=== PATIENT | male | born 1975 | race Hispanic/Latino ===

== ENCOUNTER 2021-02-03 12:08 | Emergency (ER) | payer OTHER ==
[~2021-02-03 12:08] MED LIST: ULTRAM50 M1 PO
[2021-02-03 13:37] LABS: HEMATOCRIT 44.6 % (39.0-50.0); HEMOGLOBIN 14.7 g/dl (14.0-18.0); IMMATURE GRANULOCYTES 0.4 % (0.0-5.0); MEAN CELL VOLUME 89.9 fL CALC (80.0-100.0); MEAN CORPUSCULAR HGB 29.6 pG CALC (26.0-32.0); NEUT# 11.67 thou/uL (1.82-7.42); RED BLOOD COUNT 4.96 mill/uL (4.70-6.10); RED CELL DISTRI WIDTH 12.5 % (11.5-15.5)
[2021-02-03 13:54] LABS: ALBUMIN 3.8 g/dL (3.2-5.0); ALKALINE PHOSPHATASE 72 u/l (38-126); AMYLASE 62 u/l (30-110); ANION GAP 13 (6-22 (CALC)); BILIRUBIN, TOTAL 0.2 mg/dL (0.0-1.4); BUN 11 mg/dL (9-20); BUN/CREATININE RATIO 15 (12-20 (CALC)); CARBON DIOXIDE 29 mmol/l (22-30); CHLORIDE 95 mmol/l (95-108); CREATININE 0.7 mg/dL (0.7-1.3); GFR > 60 ML/MIN (>=60 (CALC)); GFR FOR AFR.AMER. > 60 ML/MIN (>=60 (CALC)); LIPASE 50 u/l (23-300); POTASSIUM 4.3 mmol/l (3.5-5.1); SGOT/AST 44 u/l (17-59); TOTAL PROTEIN 7.4 g/dL (6.3-8.2)
[2021-02-03 14:00] LABS: SODIUM 133 mmol/l (137-146)
[2021-02-03 14:38] LABS: D-DIMER 0.41 mg/L (0.19-0.60)
[2021-02-03 14:41] LABS: ACT PARTIAL THROMBO TIME 25.5 SECONDS (20.0-32.5); INTERNATIONAL NORMALIZED RATIO 0.9 RATIO (0.7-1.3); PROTHROMBIN TIME 9.9 SECONDS (9.0-12.5)
[2021-02-03 15:02] LABS: URINE BILIRUBIN - DIPSTICK NEGATIVE (NEGATIVE); URINE BLOOD DIPSTICK NEGATIVE (NEGATIVE); URINE COLOR YELLOW; URINE GLUCOSE - DIPSTICK NEGATIVE (NEGATIVE); URINE KETONE NEGATIVE (NEGATIVE); URINE LEUK ESTERASE NEGATIVE (NEGATIVE); URINE PH 7.5 (4.5-8.0); URINE PROTEIN - DIPSTICK NEGATIVE (NEG-TRACE); URINE UROBILINOGEN - DIPSTICK 0.2 E.U./dL (0.2)
[2021-02-03 15:10] LABS: URINE NITRITE - DIPSTICK NEGATIVE (Negative)
[2021-02-03] MEDS ORDERED: DECADRON2 MG PO (16:29)
[2021-02-03] MEDS ORDERED: VENTOLIN HFA IN (16:29)
[2021-02-03] MEDS ORDERED: ZPAK PO (16:29)
[2021-02-03 17:51] VITALS: BP 147/87
== END 2021-02-03 18:02 | disposition home or self-care (01) | DRG 177 ==
LOC: ED 12:08
DX: U07.1 COVID-19 (principal); J12.82 Pneumonia due to coronavirus disease 2019
CPT/HCPCS: Q9967

== ENCOUNTER 2021-02-04 19:28 | Inpatient (IN) | payer OTHER ==
[~2021-02-04] VITALS: Ht 160 cm; Wt 92.0 kg
[~2021-02-04 19:28] MED LIST changes: +DECADRON2 MG PO; +VENTOLIN HFA IN; +ZPAK PO
[2021-02-04 21:00] LABS: HEMATOCRIT 44.3 % (39.0-50.0); HEMOGLOBIN 14.5 g/dl (14.0-18.0); IMMATURE GRANULOCYTES 1.1 % (0.0-5.0); MEAN CELL VOLUME 90.2 fL CALC (80.0-100.0); MEAN CORPUSCULAR HGB 29.5 pG CALC (26.0-32.0); MEAN CORPUSCULAR HGB CONC 32.7 g/dL CAL (32.0-36.0); NEUT# 21.1 thou/uL (1.82-7.42); RED BLOOD COUNT 4.91 mill/uL (4.70-6.10); RED CELL DISTRI WIDTH 12.6 % (11.5-15.5)
[2021-02-04 21:21] LABS: ALBUMIN 3.9 g/dL (3.2-5.0); ALKALINE PHOSPHATASE 83 u/l (38-126); ANION GAP 13 (6-22 (CALC)); BUN 15 mg/dL (9-20); BUN/CREATININE RATIO 21 (12-20 (CALC)); CARBON DIOXIDE 29 mmol/l (22-30); CHLORIDE 97 mmol/l (95-108); CREATININE 0.7 mg/dL (0.7-1.3); GFR > 60 ML/MIN (>=60 (CALC)); GFR FOR AFR.AMER. > 60 ML/MIN (>=60 (CALC)); POTASSIUM 4.4 mmol/l (3.5-5.1); SGOT/AST 32 u/l (17-59); SODIUM 134 mmol/l (137-146); TOTAL PROTEIN 7.8 g/dL (6.3-8.2)
[2021-02-04 21:28] LABS: BILIRUBIN, TOTAL 0.4 mg/dL (0.0-1.4)
--- NOTE | 2021-02-04 22:15 | NUR ---
PT RESTING. VSS. AWAITING ADMISSION.
--- NOTE | 2021-02-04 23:55 | NUR ---
PT TO FLOOR VIA STRETCHER. REPORT CALLED TO FLOOR BY LUCILLE PHILLIP. TAKE TO FLOOR VIA STRETCHER WITH O2 @ 2 LPM. VSS
--- NOTE | 2021-02-04 23:56 | NUR ---
PT ADMITED TO ROOM:283 FROM ER ROOM: 14. REPORT GIVE TO MR. FANNY ADKINS FROM MED SURG. CHECK LIST COMPLETED. LAC #20 IV SALINE LOCK ARE PATENT, CLEAN AND INTACT. FAMILY MEMBER NOTIFIED ABOUT ADMISSION AND RULES FROM MED SURG DEPARTMENT. PT TRANSFER BY STRETCHER WITH NASAL CANULA AT 2 LITERS. PT ORIENTED TO PERSON, TIME AND PLACE, ONLY SPEAK POLISH
[2021-02-05 00:09] VITALS: BP 137/75
--- NOTE | 2021-02-05 00:09 | NUR ---
PT RECEIVED FROM ED TO ROOM 283. ARRIVES VIA STRETCHER ACCOMPANIED BY KENJI ADKINS. PT AMBULATORY TO BED. GAIT STEADY. PT C/O OF CHEST PAIN FROM COUGHING AT THIS TIME. ORIENTED TO UNIT, ROOM, CALL PAL, LIGHTS, TV. ICE WATER PROVIDED. CALL PAL WITHIN REACH. AGREES TO CALL PRN.
--- NOTE | 2021-02-05 00:30 | NUR ---
PHYSICAL ASSESMENT COMPLETE. PT GIVEN TYLENOL FOR PAIN AND DISCOMFORT FROM HIS PERSISTENT COUGH. SCHEDULED MEDICATIONS AND PRN MEDICATION ADMINISTERED, SEE E-MAR. PTS RESPIATIONS ARE MILDLY LABORED. pT IS 0N 3 LITERS OF OXYGEN IN WHICH HIS STURATION IS 92%. PT HAS GOOD PULSES. HEART SOUNDS HEARD NORMAL SINUS RHYTHM. PT IS AMHARIC SPEAKING ONLY. KENJI ADKINS FROM ER INTERPRETED. PT DENIES ANY NEEDS AT THIS TIME. PLAN OF CARE REVIEWED, PT DENIES QUESTIONS, VERBALIZES UNDERSTANDING. ITEMS WITHIN REACH, BED LOCKED IN LOW POSITION W/ BEDRAILS UP X2. CALL PAL WITHIN REACH, AGREES TO CALL PRN.
[2021-02-05 03:33] VITALS: BP 131/74
--- NOTE | 2021-02-05 04:21 | NUR ---
PT RESTING IN BED, NO SIGNS OF DISTRESS NOTED, RESP EVEN AND UNLABORED. PT VOICES NO NEEDS OR COMPLAINTS AT THIS TIME. CALL LIGHT IN REACH, CONTINUE TO MONITOR.
[2021-02-05 05:08] LABS: HEMATOCRIT 42.3 % (39.0-50.0); IMMATURE GRANULOCYTES 1.1 % (0.0-5.0); MEAN CELL VOLUME 90.8 fL CALC (80.0-100.0); MEAN CORPUSCULAR HGB CONC 33.1 g/dL CAL (32.0-36.0); NEUT# 22.13 thou/uL (1.82-7.42); RED BLOOD COUNT 4.66 mill/uL (4.70-6.10); RED CELL DISTRI WIDTH 12.8 % (11.5-15.5)
[2021-02-05 05:37] LABS: ALKALINE PHOSPHATASE 71 u/l (38-126); ANION GAP 14 (6-22 (CALC)); BILIRUBIN, TOTAL 0.4 mg/dL (0.0-1.4); BUN 16 mg/dL (9-20); BUN/CREATININE RATIO 27 (12-20 (CALC)); CARBON DIOXIDE 25 mmol/l (22-30); CHLORIDE 101 mmol/l (95-108); CREATININE 0.6 mg/dL (0.7-1.3); GFR > 60 ML/MIN (>=60 (CALC)); GFR FOR AFR.AMER. > 60 ML/MIN (>=60 (CALC)); POTASSIUM 4.6 mmol/l (3.5-5.1); SGOT/AST 26 u/l (17-59); SODIUM 135 mmol/l (137-146)
[2021-02-05 05:42] LABS: TOTAL PROTEIN 6.1 g/dL (6.3-8.2)
[2021-02-05 06:22] LABS: URINE BILIRUBIN - DIPSTICK NEGATIVE (NEGATIVE); URINE BLOOD DIPSTICK NEGATIVE (NEGATIVE); URINE COLOR YELLOW; URINE GLUCOSE - DIPSTICK NEGATIVE (NEGATIVE); URINE KETONE NEGATIVE (NEGATIVE); URINE LEUK ESTERASE NEGATIVE (NEGATIVE); URINE PROTEIN - DIPSTICK TRACE mg/dL (NEG-TRACE); URINE UROBILINOGEN - DIPSTICK 0.2 E.U./dL (0.2)
[2021-02-05 06:39] LABS: URINE NITRITE - DIPSTICK NEGATIVE (Negative)
[2021-02-05 07:41] VITALS: BP 131/75
--- NOTE | 2021-02-05 08:06 | NUR ---
ASSESSMENT DONE. PATIENT IS ALERT AND ORIENTED X3. PATIENT DENIES PAIN AT THIS TIME. PATIENT STATED WHEN HE MOVES HE FEELS SOB. LUNGS SOUND DIMINISHED. O2 AT 5L VIA NC AND 02 READING 92%. TELE IN PALCE. ASSISTED PATIENT TO THE BSC AND PATIENT HAD A BM. PATIENT DENIES ANY OTHER NEEDS AT THIS TIME. SAFETY PRECAUTIONS REINFORCED AND CALL LIGHT IN REACH.
--- NOTE | 2021-02-05 10:27 | NUR ---
ROUNDING WITH DR. FITZGERALD. DICSUSS POC WITH PATIENT AND VERBALIZED UNDERSTANDING. PATIENT COUGHS WHEN HE SPEAKS FEELS SOB PER MD UP O2 TO 6L. PATIENT O2 IS 91%-94%. CALL LIGHT IN REACH.
[2021-02-05 11:22] VITALS: BP 130/75
--- NOTE | 2021-02-05 12:00 | NUR ---
PATIENT IS EATING HIS LUNCH. PATIENT DENIES NEEDS AT THIS TIME. 02 AT HIGH FLOW 6L NC. CALL LIGHT IN REACH.
--- NOTE | 2021-02-05 14:28 | NUR ---
PATIENT STATED HE FEELS SOB AT TIMES. 02 READING 85% WITH HIGH FLOW ON 6L. INCREASE HIGH FLOW TO 9L VIA NC AND O2 READING 90%-91%. CALL LIGHT IN REACH.
[2021-02-05 14:30] VITALS: BP 127/69
--- NOTE | 2021-02-05 15:28 | NUR ---
DR. FITZGERALD WAS UPDATED ON PATIENT BEING ON HIGH FLOW 9L VIA NC. ASSISTED PATIENT TO TURN PRONE POSITION. O2 READING 95%. PATIENT DENIES ANY OTHER NEEDS AT THIS TIME. CALL LIGHT IN REACH.
[2021-02-05 19:20] VITALS: BP 119/68
[2021-02-06] VITALS (20 sets, daily range): BP systolic 116–143; BP diastolic 64–82
--- NOTE | 2021-02-06 | NUR ---
PT LAYING IN BED WITH EYES CLOSED, APPEARS TO BE SLEEPING, APPEARS COMFORTABLE AND IN NO DISTRESS. RESPIRATIONS REGULAR AND UNLABORED. ITEMS REMAIN WITHIN REACH, CALL PAL REMAINS WITHIN REACH. BED REMAINS LOCKED AND IN LOW POSITION WITH BEDRAILS UP X2. WILL CONTINUE TO MONITOR.
--- NOTE | 2021-02-06 03:56 | NUR ---
PT RESTING IN BED, NO SIGNS OF DISTRESS NOTED, RESP EVEN AND BUT SOME WHAT LABORED ON 9 LIERS OF OXYGEN. PT VOICES NO NEEDS OR COMPLAINTS AT THIS TIME. CALL LIGHT IN REACH, CONTINUE TO MONITOR.
[2021-02-06 05:36] LABS: HEMATOCRIT 46.5 % (39.0-50.0); HEMOGLOBIN 15.4 g/dl (14.0-18.0); MEAN CELL VOLUME 91.4 fL CALC (80.0-100.0); MEAN CORPUSCULAR HGB 30.3 pG CALC (26.0-32.0); MEAN CORPUSCULAR HGB CONC 33.1 g/dL CAL (32.0-36.0); NEUT# 21.47 thou/uL (1.82-7.42); RED BLOOD COUNT 5.09 mill/uL (4.70-6.10); RED CELL DISTRI WIDTH 12.6 % (11.5-15.5)
[2021-02-06 05:51] LABS: ALBUMIN 3.2 g/dL (3.2-5.0); ALKALINE PHOSPHATASE 86 u/l (38-126); ANION GAP 14 (6-22 (CALC)); BILIRUBIN, TOTAL 0.5 mg/dL (0.0-1.4); BUN 15 mg/dL (9-20); BUN/CREATININE RATIO 26 (12-20 (CALC)); CARBON DIOXIDE 24 mmol/l (22-30); CHLORIDE 101 mmol/l (95-108); CREATININE 0.6 mg/dL (0.7-1.3); GFR > 60 ML/MIN (>=60 (CALC)); GFR FOR AFR.AMER. > 60 ML/MIN (>=60 (CALC)); POTASSIUM 4.1 mmol/l (3.5-5.1); SGOT/AST 30 u/l (17-59); SODIUM 135 mmol/l (137-146); TOTAL PROTEIN 6.5 g/dL (6.3-8.2)
[2021-02-06 05:54] LABS: IMMATURE GRANULOCYTES 6.7 % (0.0-5.0)
--- NOTE | 2021-02-06 07:50 | NUR ---
PT NOTED SITTING UP IN BED. ALERT AND ORIENTED WITH FLAT AFFECT. PT APPEARS SOB AND DIAPHORETIC. LABORED RESPIRATIONS CURRENTLY ON 13L/M VIA NC SAT 90-91%. DRY NONPRODUCTIVE COUGH NOTED. WILL NOTIFY PHYSICIAN. PT IS FILIPINO SPEAKING. ENCOURAGED PT TO PRONE. PT REFUSING BREAKFAST. CALL LIGHT WITHIN REACH. WILL CONTINUE TO MONITOR.
--- NOTE | 2021-02-06 09:00 | NUR ---
VERBAL ORDERS RECEIVED TO TRANSFER PT TO ICU AND PLACE ON VAPOTHERM. PT TRANSFERED TO ICU BED 2 AND PLACED ON VAPOTHERM AT THIS TIME. REPORT CALLED TO SHIRIN ADKINS
--- NOTE | 2021-02-06 09:07 | NUR ---
male pt received to ICU bed 2 via bed from med/surg in stable condition; report received from Jeffrey Soto LPN; Victoria Valle, RN at bedside to interpret; assessment completed at this time; pt alert and oriented; polish speak; offers no complaints; denies pain; no n/v noted; resp labored; lungs clear/ diminished; skin color wnl; vapotherm placed per RT; export freight manager loose cough noted; exertional sob with minimal activity; hr reg; strong pulses; no edema noted; sr on monitor; abd soft with bs present; no bm noted per chief writer; urinal provided; #20 patent to lac with ivf infusing without complication; no redness or edema noted at site; transfer/ plan of care explained; airborne precautions continued; call light within reach; will continue to monitor
--- NOTE | 2021-02-06 09:18 | NUR ---
CALLED PATIENT OSMEL [phone] NOTIFIED HER THAT PATIENT WAS TRANSFER TO ICU 2.
--- NOTE | 2021-02-06 10:05 | NUR ---
awake in bed in high fowlers position; offers no complaints; o2 sat 98%; sr on monitor; iv intact and patent; call light within reach; will continue to monitor
--- NOTE | 2021-02-06 11:00 | NUR ---
Dr Hancock present at bedside to assess pt and discuss plan of care
--- NOTE | 2021-02-06 12:00 | NUR ---
assisted to bsc; pt able to have a bm and void; pericare per self; labored resp with exertion; desat to 86% with exertion; back to bed; iv saline locked as per orders; vapotherm intact and continued; meal provided; will continue to monitor
--- NOTE | 2021-02-06 14:00 | NUR ---
awake in bed; offers no complaints; iv flushed and patent; sr on monitor; vspotherm intact and maintained; call light within reach; will continue to monitor
--- NOTE | 2021-02-06 16:20 | NUR ---
resting in bed with eyes closed; no apparent distress noted; resp even and unlabored; vapotherm maintained at 25L/60% FiO2; iv saline locked; sr on monitor; call light within reach; will continue to monitor
--- NOTE | 2021-02-06 18:10 | NUR ---
resting in bed with eyes closed; no apparent distress noted; vapotherm intact and maintained; iv intact; sr on monitor; call light within reach
--- NOTE | 2021-02-06 19:50 | NUR ---
RECIEVED REPORT FROM LUCILLE VARNER. PT A AND O IN BED, WITH HI FLOW NC IN PLACE, DENIES PAIN, OR ANY OTHER NEEDS, NO S/S OF DISTRESS NOTED.
--- NOTE | 2021-02-06 22:00 | NUR ---
PT REPEATEDLY EDUCATED ON PRONING, LAYING ON SIDE, AND USE OF IS. POSITIONED PT ON SIDE, UPON ROUNDING 30MINS LATER PT LAYING ON BACK. UPDATE PROVIDED TO SPOUSE VIA PHONE, ENCOURGED SPOUSE TO ENCOURAGE PT TO FOLLOW RECOMMENDATIOS FOR POSTIONING AND IS USE
[2021-02-07] VITALS (20 sets, daily range): BP systolic 105–138; BP diastolic 58–82
--- NOTE | 2021-02-07 | NUR ---
PT DENIES PAIN, AGAIN ENCOURAGED PT ON IMPORTANCE OF POSTIONING AND IS USE
--- NOTE | 2021-02-07 05:10 | NUR ---
LAB AT BEDSIDE.
[2021-02-07 06:02] LABS: HEMATOCRIT 44.9 % (39.0-50.0); HEMOGLOBIN 14.8 g/dl (14.0-18.0); MEAN CELL VOLUME 90.2 fL CALC (80.0-100.0); MEAN CORPUSCULAR HGB 29.7 pG CALC (26.0-32.0); NEUT# 13.76 thou/uL (1.82-7.42); RED BLOOD COUNT 4.98 mill/uL (4.70-6.10); RED CELL DISTRI WIDTH 12.5 % (11.5-15.5)
[2021-02-07 06:24] LABS: ALBUMIN 3.1 g/dL (3.2-5.0); ALKALINE PHOSPHATASE 79 u/l (38-126); ANION GAP 14 (6-22 (CALC)); BILIRUBIN, TOTAL 0.5 mg/dL (0.0-1.4); BUN 17 mg/dL (9-20); BUN/CREATININE RATIO 27 (12-20 (CALC)); C-REACTIVE PROTEIN 4.8 mg/dL (0-0.9); CARBON DIOXIDE 27 mmol/l (22-30); CHLORIDE 96 mmol/l (95-108); CREATININE 0.7 mg/dL (0.7-1.3); GFR > 60 ML/MIN (>=60 (CALC)); GFR FOR AFR.AMER. > 60 ML/MIN (>=60 (CALC)); POTASSIUM 4.2 mmol/l (3.5-5.1); SGOT/AST 26 u/l (17-59); SODIUM 133 mmol/l (137-146); TOTAL PROTEIN 6.4 g/dL (6.3-8.2)
[2021-02-07 06:35] LABS: IMMATURE GRANULOCYTES 15.1 % (0.0-5.0)
--- NOTE | 2021-02-07 08:06 | NUR ---
PT SEEN AWAKE, ALERT, ORIENTED X 3. PT IS URDU ONLY. PT WITH CLEAR LUNG SOUNDS, DESATS WITH MOVEMENT. VAPOTHERM AT 25L/60%. PT GUARDS AGAINST COUGH. BM THIS MORNING. SKIN INTACT.
--- NOTE | 2021-02-07 13:26 | NUR ---
PT CONTINUES BEFORE, NO ACUTE DISTRESS BUT REQUIRES 25 LPM OXYGEN. PT UP TO CHAIR FOR BREAKFAST THIS MORNING, THEN BACK TO BED. PT MOVES SLOWLY WITH STEADY MOVEMENT, CONCERNED ABOUT HIS OXYGEN HUNGER.
--- NOTE | 2021-02-07 15:22 | NUR ---
PT CALLED TO SAY THAT HE WAS FEELING TENSION IN CHEST, SHORTNESS OF BREATH. PT ENCOURAGED TO REST PRONE IN THE BED, WHICH HE WAS ABLE TO DO SLOWLY. SATS NOW IN THE UPPER 90s, VAPOTHERM CONTINUES WITHOUT CHANGE. CALLED AGAIN AND WAS UPDATED ON PT CONDITION.
--- NOTE | 2021-02-07 17:07 | NUR ---
PT APPEARS IMPROVED, NO ANXIETY/TENSION NOTED.
--- NOTE | 2021-02-07 19:30 | NUR ---
REPORT GIVEN BY VINICIO. PATIENT RESTING IN BED. RESP LABORED AND SHALLOW. VAPOTHERM 25L 60% FIO2. FALL AND SAFTEY PRECAUTIONS IN PLACE. ALERT AND ORIENTED X 4. IV INFUSING KVO FLIUDS. SKIN INTACT. PLAN OF CARE DISCUSSED. PATIENT INFORMED TO CALL WITH ANY QUESTIONS OR CONCERNS.
--- NOTE | 2021-02-07 20:26 | NUR ---
UPDATED ON PATIENT CONDITION
--- NOTE | 2021-02-07 21:00 | NUR ---
RT INCREASED FIO2 FROM 60% TO 65%
--- NOTE | 2021-02-07 21:45 | NUR ---
RT INCREASED FIO2 FROM 65% TO 90% DUE TO LOW SATURATIONS.
[2021-02-08] VITALS (19 sets, daily range): BP systolic 91–149; BP diastolic 34–82
--- NOTE | 2021-02-08 00:28 | NUR ---
NO S/S OF DISTRESS NOTED. FALL AND SAFTEY PRECAUTIONS IN PLACE/
--- NOTE | 2021-02-08 01:15 | NUR ---
PATIENT REQUESTING COUGH SYRUP, GIVEN PER MD ORDERS
--- NOTE | 2021-02-08 02:59 | NUR ---
PATIENT RESTING WITH EYES CLOSED. RESP EVEN AND UNLABORED. NO S/S OF DISTRESS NOTED. FALL AND SAFTEY PRECAUTIONS IN PLACE.
[2021-02-08 06:27] LABS: ALBUMIN 3.1 g/dL (3.2-5.0); ALKALINE PHOSPHATASE 79 u/l (38-126); ANION GAP 13 (6-22 (CALC)); BILIRUBIN, TOTAL 0.6 mg/dL (0.0-1.4); BUN 18 mg/dL (9-20); BUN/CREATININE RATIO 25 (12-20 (CALC)); CARBON DIOXIDE 27 mmol/l (22-30); CHLORIDE 97 mmol/l (95-108); CREATININE 0.7 mg/dL (0.7-1.3); GFR > 60 ML/MIN (>=60 (CALC)); GFR FOR AFR.AMER. > 60 ML/MIN (>=60 (CALC)); POTASSIUM 4.4 mmol/l (3.5-5.1); SGOT/AST 31 u/l (17-59); SODIUM 132 mmol/l (137-146); TOTAL PROTEIN 6.5 g/dL (6.3-8.2)
--- NOTE | 2021-02-08 07:42 | NUR ---
PT SEEN AT REST IN THE BED, SATS HIGH 99% WHILE AT REST. LUNGS CLEAR, VERY DIMINISHED, VAPOTHERM IN USE AT 25/65/33 SETTINGS. PT DESATS WITH MINIMAL ACTIVITY. PT DOES SAY THAT HE HAD A RESTFUL NIGHT. NAD.
--- NOTE | 2021-02-08 12:58 | NUR ---
PT CONTINUES BEFORE, NO SIGNIFICANT CHANGE IN STATUS. FAMILY HAS CALLED TO BE UPDATED.
--- NOTE | 2021-02-08 15:27 | NUR ---
PT STATES THAT HE FEELS BETTER THIS AFTERNOON, NO CHEST PRESSURE LIKE YESTERDAY. FAMILY UPDATED ON PHONE.
--- NOTE | 2021-02-08 17:54 | NUR ---
PT CONTINUES BEFORE, NO SHORTNESS OF BREATH OR CHEST TIGHTNESS. VAPOTHERM CONTINUES AT 25/65.
--- NOTE | 2021-02-08 20:53 | NUR ---
UPDATED FAMILY ON PATIENT CONDITION
--- NOTE | 2021-02-08 21:23 | NUR ---
REPORT GIVEN BY VINICIO. PATIENT RESTING IN BED AWAKE. RESP SHALLOW AND EVEN. VAPOTHERM 25L AND 65% FIO2. FALL AND SAFTEY PRECAUTIONS IN PLACE. NO S/S OF DISTRESS NOTED. FALL AND SAFTEY PRECAUTIONS IN PLACE. IV SALINE LOCKED. NSR ON TELE. PATIETN INFORMED TO CALL WITH ANY QUESTIONS OR CONCERNS.
--- NOTE | 2021-02-08 23:52 | NUR ---
PATIENT RESTING WITH EYES CLOSED. NO S/S OF DISTRESS NOTED
[2021-02-09] VITALS (24 sets, daily range): BP systolic 103–139; BP diastolic 62–79
--- NOTE | 2021-02-09 02:00 | NUR ---
PATIENT GIVEN MOTRIN FOR JONES
--- NOTE | 2021-02-09 04:22 | NUR ---
PATIENT RESTING WITH EYES CLOSED. RESP EVEN AND UNLABORED. NO S/S OF DISTRESS NOTED. FALL AND SAFTEY PRECAUIONS
[2021-02-09 06:12] LABS: HEMATOCRIT 44.3 % (39.0-50.0); HEMOGLOBIN 14.6 g/dl (14.0-18.0); MEAN CELL VOLUME 89.1 fL CALC (80.0-100.0); MEAN CORPUSCULAR HGB 29.4 pG CALC (26.0-32.0); NEUT# 13.85 thou/uL (1.82-7.42); RED BLOOD COUNT 4.97 mill/uL (4.70-6.10); RED CELL DISTRI WIDTH 12.5 % (11.5-15.5)
[2021-02-09 06:13] LABS: IMMATURE GRANULOCYTES 13.5 % (0.0-5.0)
[2021-02-09 06:39] LABS: ALBUMIN 2.7 g/dL (3.2-5.0); ALKALINE PHOSPHATASE 69 u/l (38-126); ANION GAP 12 (6-22 (CALC)); BILIRUBIN, TOTAL 0.5 mg/dL (0.0-1.4); BUN 16 mg/dL (9-20); BUN/CREATININE RATIO 24 (12-20 (CALC)); CARBON DIOXIDE 24 mmol/l (22-30); CHLORIDE 98 mmol/l (95-108); CREATININE 0.7 mg/dL (0.7-1.3); GFR > 60 ML/MIN (>=60 (CALC)); GFR FOR AFR.AMER. > 60 ML/MIN (>=60 (CALC)); POTASSIUM 4.4 mmol/l (3.5-5.1); SGOT/AST 23 u/l (17-59); SODIUM 130 mmol/l (137-146); TOTAL PROTEIN 5.9 g/dL (6.3-8.2)
--- NOTE | 2021-02-09 08:02 | NUR ---
PT SEEN AWAKE, ALERT, ORIENTED X 3. LUNGS CLEAR BUT SIGNIFICANTLY DIMINISHED, USES VAOTHERM AT 30/70 WITH SATS IN THE LOW TO MID 90s. PT DID FEEL SHORTNESS OF BREATH THIS MORNING, RESOLVED WITH INCREASE IN VAPOTHERM NUMBERS.
--- NOTE | 2021-02-09 11:15 | NUR ---
FAMILY UPDATED ON PT STATUS. PCXR DONE THIS MORNING.
--- NOTE | 2021-02-09 16:41 | NUR ---
PT RESTS IN THE BED, NO DISTRESS. PT UPDATED ON RESULTS, ATTEMPTED TO DESCRIBE COVID A LONG PROCESS TOWARD IMPROVEMENT.
--- NOTE | 2021-02-09 20:00 | NUR ---
Received PT from Icu-Rn. Pt observed oriented and alert. Vitals are stable. Educated PT about use the call light, plan of care, falls and safety precautions.
--- NOTE | 2021-02-09 22:00 | NUR ---
HOURLY ROUNDING PROVIDED. PT OBSERVED CALM AND SLEEP. DR. OROZCO PROVIDED A PHONE ORDER FOR XANAX 0.5mg PRN (See Emar). PT REFUSED MEDS AT THIS TIME.
[2021-02-10] VITALS (14 sets, daily range): BP systolic 101–125; BP diastolic 56–76
--- NOTE | 2021-02-10 | NUR ---
HOURLY PROVIDED. VITAL STABLE, PT REFUSED ANY PAIN AT THIS TIME. RE EDUCATED ABOUT BREATHING MANAGEMENT. SPOKE WITH HIS OSMEL AND UPDATED BY PHONE.
--- NOTE | 2021-02-10 02:00 | NUR ---
HOURLY ROUNDING PROVIDED. ANXIETY MEDICATION GIVE PER DOCTOR ORDER (SEE EMAR). VITAL STABLE. PT OBSERVED CALM AND REST.
--- NOTE | 2021-02-10 04:00 | NUR ---
HOURLY ROUNDING PROVIDED. PT OBSERVED CALM AND SLEEP. NO COMPLAINT ABOUT PAIN, VITALS ARE STABLE, IL REFUSED A BED BATH AT THIS ITME. RE EDUCATED ABOUT PLAN OF CARE, FALLS AND SAFETY PRECAUTIONS.
--- NOTE | 2021-02-10 06:20 | NUR ---
PT RECIEVED ON ALL DOCUMENTED PARAMTERS. FUR BLENDER TO MONITOR.
--- NOTE | 2021-02-10 06:27 | NUR ---
HOURLY ROUNDING PROVIDED. PT OBSERVED CALM ANS SLEEP. REFUSED A BED BATH FOR SECOND TIME, NO COMPLAINT ABOUT PAIN.
[2021-02-10 06:57] LABS: HEMATOCRIT 45.8 % (39.0-50.0); HEMOGLOBIN 15.1 g/dl (14.0-18.0); MEAN CELL VOLUME 90.3 fL CALC (80.0-100.0); MEAN CORPUSCULAR HGB 29.8 pG CALC (26.0-32.0); RED BLOOD COUNT 5.07 mill/uL (4.70-6.10); RED CELL DISTRI WIDTH 12.5 % (11.5-15.5)
[2021-02-10 07:09] LABS: ALBUMIN 2.7 g/dL (3.2-5.0); ALKALINE PHOSPHATASE 68 u/l (38-126); ANION GAP 14 (6-22 (CALC)); BILIRUBIN, TOTAL 0.3 mg/dL (0.0-1.4); BUN 15 mg/dL (9-20); BUN/CREATININE RATIO 23 (12-20 (CALC)); CARBON DIOXIDE 25 mmol/l (22-30); CHLORIDE 97 mmol/l (95-108); CREATININE 0.7 mg/dL (0.7-1.3); GFR > 60 ML/MIN (>=60 (CALC)); GFR FOR AFR.AMER. > 60 ML/MIN (>=60 (CALC)); POTASSIUM 4.6 mmol/l (3.5-5.1); SGOT/AST 19 u/l (17-59); SODIUM 131 mmol/l (137-146); TOTAL PROTEIN 5.8 g/dL (6.3-8.2)
--- NOTE | 2021-02-10 08:17 | NUR ---
PT SEEN INITIALLY SHORT OF BREATH HE SITS UP WHILE HEADING TO BSC. OXYGEN INCREASED FROM 60 TO 70%, IMMEDIATE INCREASE IN SATURATION FROM 80s TO LOW 90s. PT ALERT AND ORIENTED X 3. LUNGS SIGNIFICANTLY DIMINISHED, VAPOTHERM IN USE. SKIN INTACT. PT WITH ANXIETY NOTED WITH MOVEMENT AND ACCOMPANYING DESATURATION.
--- NOTE | 2021-02-10 13:25 | NUR ---
PT SEEN PRONE ON BED FOR MORNING NAP. HE IS USING INCENTIVE SPIROMETER. HE IS EXERCIZING HIS LEGS WHILE IN BED. PT CAN BE HEARD TALKING ON THE PHONE WITHOUT SHORTNESS OF BREATH.
--- NOTE | 2021-02-10 14:08 | NUR ---
NO CHANGES AT THIS TIME. NAD. VSS. DRIVER LICENSE EXAMINER TO MONITOR.
--- NOTE | 2021-02-10 15:04 | NUR ---
PT HAD QUESTIONS ABOUT COVID AND ITS CARE, REVIEWED. PT WITH GOOD EFFORT IN ROOM TO EXERCIZE LUNGS, IS PERHAPS IMPROVED SOME TODAY.
--- NOTE | 2021-02-10 17:24 | NUR ---
WEANED HHFNC PER PT SPO2. PEG WELL AT THIS TIME. INFORMED PT WE WILL ATTEMPT AGGRESSIVE WEAN TOMORROW. PT IS AGREEABLE. FISH WORM GROWER TO MONITOR.
--- NOTE | 2021-02-10 17:41 | NUR ---
PT DOING WELL THIS AFTERNOON, HAS BEEN TURNED DOWN FROM TO . PT ENCOURAGED BY IMPROVEMENT.
--- NOTE | 2021-02-10 20:00 | NUR ---
Received report from Mr. Morgan Pill Coater. Pt observed rest, alert and awake. Assesment documented. Educated about plan of care, medications, falls and safety precautions and air borne, contact and eyes isolations (Per Covid-19).
--- NOTE | 2021-02-10 21:45 | NUR ---
Request to SOCIOLOGY FACULTY MEMBER cough and pain medications PRN. Meds. given (See Emar) per doctor order.
[2021-02-11] VITALS (10 sets, daily range): BP systolic 97–117; BP diastolic 46–69
--- NOTE | 2021-02-11 00:35 | NUR ---
Hourly rounding provided. PT observed sleep and calm, vital signs are stable.
--- NOTE | 2021-02-11 02:00 | NUR ---
Pt observed sleep and calm. Vitals stable.
--- NOTE | 2021-02-11 04:00 | NUR ---
Hourly rounding provides. Pt alert, awake and calm. Educated about daily labs per order.
[2021-02-11 05:48] LABS: HEMATOCRIT 44.1 % (39.0-50.0); HEMOGLOBIN 14.4 g/dl (14.0-18.0); MEAN CORPUSCULAR HGB 29.4 pG CALC (26.0-32.0); MEAN CORPUSCULAR HGB CONC 32.7 g/dL CAL (32.0-36.0); NEUT# 11.08 thou/uL (1.82-7.42); RED BLOOD COUNT 4.9 mill/uL (4.70-6.10); RED CELL DISTRI WIDTH 12.7 % (11.5-15.5)
[2021-02-11 05:55] LABS: IMMATURE GRANULOCYTES 8.2 % (0.0-5.0)
--- NOTE | 2021-02-11 06:01 | NUR ---
Pt educated about plan of care for today. Family member his (Elizabeth) up dated by phone.
[2021-02-11 06:05] LABS: ALBUMIN 2.6 g/dL (3.2-5.0); ALKALINE PHOSPHATASE 62 u/l (38-126); ANION GAP 7 (6-22 (CALC)); BILIRUBIN, TOTAL 0.4 mg/dL (0.0-1.4); BUN 16 mg/dL (9-20); BUN/CREATININE RATIO 27 (12-20 (CALC)); CARBON DIOXIDE 30 mmol/l (22-30); CHLORIDE 99 mmol/l (95-108); CREATININE 0.6 mg/dL (0.7-1.3); GFR > 60 ML/MIN (>=60 (CALC)); GFR FOR AFR.AMER. > 60 ML/MIN (>=60 (CALC)); POTASSIUM 4.4 mmol/l (3.5-5.1); SGOT/AST 17 u/l (17-59); SODIUM 132 mmol/l (137-146); TOTAL PROTEIN 5.8 g/dL (6.3-8.2)
--- NOTE | 2021-02-11 06:52 | NUR ---
PT RECIEVED ON ALL DOCUMENTED PARAMTERS. NAD. VSS. ARCHITECTURAL ENGINEERING TEACHER TO MONITOR.
--- NOTE | 2021-02-11 08:00 | NUR ---
PATIENT IS A/O X3. MAINLY SPEAKS SPAINISH BUT IS ABLE TO FOLLOW MONGOLIAN COMMANDS FOR THE MOST PART. DENIES ANY PAIN AT THIS TIME. 3MM PERRLA BILAT. CLEAR/DIMINSIHED LUNG SOUNDS. USES I.S. ACTIVE BOWEL SOUNDS. ABDOMEN IS SOFT NON DISTENDED. NO EDEMA PRESENT. STRONG PULSES. EQUAL AND STRONG HAND DESIGN ENGINEERING TECHNICIAN. SAFETY MEASURES IN PLACE. CALL LIGHT IN REACH. WILL CONTINUE TO MONITOR.
--- NOTE | 2021-02-11 10:00 | NUR ---
PATIENT IS RESTING IN BED
--- NOTE | 2021-02-11 10:25 | NUR ---
WEANED HHFNC PARAMETERS PER PT SPO2 AND PT COMFORT. PT PEG WELL AT THIS TIME. WINNIE. BRANDON. RN AWARE. LABORER TURKEY FARM TO MONITOR.
--- NOTE | 2021-02-11 16:00 | NUR ---
PATIENT IS TALKING ON THE PHONE WITH HIS .
--- NOTE | 2021-02-11 17:48 | NUR ---
WEANED PER PT SPO2.
--- NOTE | 2021-02-11 19:15 | NUR ---
PT. SITTING UP IN BED WITH NO DISTRESS NOTED AT THIS TIME. VAPOTHERM IN PLACE AND SETTINGS PER RT @10LITERS AND 50%; SPO2 94%. ENCOURAGED USE OF I/S; VERBALIZES UNDERSTANDING. VSS. URINAL EMPTIED. WILL CONTINUE TO MONITOR.
--- NOTE | 2021-02-11 19:56 | NUR ---
WEANED PT FROM 10LPM HHFNC TO 12LPM HFNC. PT PEG WELL AT THIS TIME.
--- NOTE | 2021-02-11 21:00 | NUR ---
NEW IV PLACED TO LEFT HAND OTHER IV SITE IS OUT OF DATE AND REMOVED WITH CATHETER TIP INTACT. PT. MEDICATED WITH ORDERED PRN TYLENOL, ROBITUSSIN AC , WELL XANAX PER ORDER AND PT'S REQUEST; DENIES OTHER NEEDS.
--- NOTE | 2021-02-11 23:45 | NUR ---
PT. SITTING UP IN BED AND DENIES NEEDS. TEMP ASSESSED. ENCOURAGED TO CALL FOR ANY NEEDS.
[2021-02-12] VITALS (9 sets, daily range): BP systolic 102–116; BP diastolic 59–68
--- NOTE | 2021-02-12 01:50 | NUR ---
PT. SITTING UP IN BED WITH EYES CLOSED; NO DISTRESS NOTED. NO CHANGE IN ASSESSMENT.
--- NOTE | 2021-02-12 03:20 | NUR ---
PT. SITTING UP IN BED AND DENIES NEEDS. URINAL EMPTIED; SPO2 93% ON 12 LITERS HFNC; WILL CONTINUE TO MONITOR.
--- NOTE | 2021-02-12 05:29 | NUR ---
PT. SITTING UP IN BED WITH NO DISTRESS NOTED; REPORTS HE RESTED WELL THROUGHOUT THE NIGHT; DENIES FURTHER NEEDS. CALL LIGHT IS IN REACH. SPO2 WNL.
[2021-02-12 07:00] LABS: HEMATOCRIT 43.1 % (39.0-50.0); HEMOGLOBIN 14.1 g/dl (14.0-18.0); MEAN CELL VOLUME 90.2 fL CALC (80.0-100.0); MEAN CORPUSCULAR HGB 29.5 pG CALC (26.0-32.0); MEAN CORPUSCULAR HGB CONC 32.7 g/dL CAL (32.0-36.0); RED BLOOD COUNT 4.78 mill/uL (4.70-6.10); RED CELL DISTRI WIDTH 12.6 % (11.5-15.5)
[2021-02-12 07:10] LABS: ALBUMIN 2.5 g/dL (3.2-5.0); ALKALINE PHOSPHATASE 60 u/l (38-126); ANION GAP 11 (6-22 (CALC)); BILIRUBIN, TOTAL 0.3 mg/dL (0.0-1.4); BUN 17 mg/dL (9-20); BUN/CREATININE RATIO 29 (12-20 (CALC)); CARBON DIOXIDE 26 mmol/l (22-30); CHLORIDE 98 mmol/l (95-108); CREATININE 0.6 mg/dL (0.7-1.3); GFR > 60 ML/MIN (>=60 (CALC)); GFR FOR AFR.AMER. > 60 ML/MIN (>=60 (CALC)); POTASSIUM 4.9 mmol/l (3.5-5.1); SGOT/AST 17 u/l (17-59); SODIUM 130 mmol/l (137-146); TOTAL PROTEIN 5.6 g/dL (6.3-8.2)
--- NOTE | 2021-02-12 08:00 | NUR ---
PATIENT IS A/O X3. ABLE TO SPEAK SOME RUSSIAN, PRIMARILY SPAINISH SPEAKING. DENIES PAIN OR SOB AT THIS TIME. CLEAR TO DIMINSHED LUNG SOUNDS. ACTIVE BOWEL SOUNDS. NO EDEMA PRESENT. OFF VAPO, ONTO 10L HIGH FLOW NASAL CANNULA. WILL WEAN HIM DOWN THROUGHOUT THE DAY HE CAN TOLERATE. SAFETY MEASURES IN PLACE. CALL LIGHT IN PLACE. WILL CONTINUE TO MONITOR.
--- NOTE | 2021-02-12 10:00 | NUR ---
PATIENT IS TALKING ON HIS CELL PHONE.
--- NOTE | 2021-02-12 11:02 | NUR ---
WEANED PT OFF OF HHFNC, ONTO HFNC. PT PEG WELL. NAD. VSS. GOLF SALES MANAGER TO MONITOR.
--- NOTE | 2021-02-12 12:00 | NUR ---
PATIENT IS EATING LUNCH.
--- NOTE | 2021-02-12 13:20 | NUR ---
PATIENT WAS TRANSFERRED TO [facility] ROOM 289. STABLE. WITH MASK ON. REPORTED WAS GIVEN TO NURSE FUENTES PRIOR TO TRANSPORT.
--- NOTE | 2021-02-12 15:28 | NUR ---
REPORT WAS RECEIVED FROM DUONG. PATIENT CAME FROM ICU VIA WHEELCHAIR. ICU IN ROOM TO OBTAIN VS. CALL LIGHT IN REACH.
--- NOTE | 2021-02-12 15:45 | NUR ---
PATIENT IS RESTING IN BED WITH NO DISRESS NOTED. PATIENT STATED HE FEELS BETTER AND NO SOB AT THIS TIME. O2 AT HIGH FLOW 8L VIA NC. PATIENT DENIES PAIN AT THIS TIME. PATIENT HAD BEEN USING THE I.S AND GOES UP TO 1000ML. PO FLUIDS PROVIDED. PATIENT DENIES ANY OTHER NEEDS AT THIS TIME. CALL LIGHT IN REACH.
--- NOTE | 2021-02-12 15:57 | NUR ---
pt transfered to ms [id number] on 8lpm [facility].
[2021-02-13 03:45] VITALS: BP 109/62
[2021-02-13 06:12] LABS: HEMATOCRIT 42.7 % (39.0-50.0); IMMATURE GRANULOCYTES 3.8 % (0.0-5.0); MEAN CELL VOLUME 90.3 fL CALC (80.0-100.0); MEAN CORPUSCULAR HGB 29.6 pG CALC (26.0-32.0); MEAN CORPUSCULAR HGB CONC 32.8 g/dL CAL (32.0-36.0); NEUT# 13.23 thou/uL (1.82-7.42); RED BLOOD COUNT 4.73 mill/uL (4.70-6.10); RED CELL DISTRI WIDTH 12.6 % (11.5-15.5)
[2021-02-13 06:54] LABS: ALBUMIN 2.6 g/dL (3.2-5.0); ALKALINE PHOSPHATASE 68 u/l (38-126); ANION GAP 11 (6-22 (CALC)); BILIRUBIN, TOTAL 0.2 mg/dL (0.0-1.4); BUN 19 mg/dL (9-20); BUN/CREATININE RATIO 28 (12-20 (CALC)); C-REACTIVE PROTEIN 1.9 mg/dL (0-0.9); CARBON DIOXIDE 26 mmol/l (22-30); CHLORIDE 98 mmol/l (95-108); CREATININE 0.7 mg/dL (0.7-1.3); GFR > 60 ML/MIN (>=60 (CALC)); GFR FOR AFR.AMER. > 60 ML/MIN (>=60 (CALC)); POTASSIUM 4.7 mmol/l (3.5-5.1); SGOT/AST 17 u/l (17-59); SODIUM 130 mmol/l (137-146); TOTAL PROTEIN 5.6 g/dL (6.3-8.2)
[2021-02-13 07:45] VITALS: BP 109/62
[2021-02-13 15:49] VITALS: BP 117/65
[2021-02-13 19:00] VITALS: BP 117/69
[2021-02-14 04:00] VITALS: BP 111/66
--- NOTE | 2021-02-14 07:00 | NUR ---
REPORT RECEIVED FROM LIZRN
[2021-02-14 07:13] LABS: HEMATOCRIT 45.9 % (39.0-50.0); HEMOGLOBIN 15.2 g/dl (14.0-18.0); MEAN CELL VOLUME 90.9 fL CALC (80.0-100.0); MEAN CORPUSCULAR HGB 30.1 pG CALC (26.0-32.0); MEAN CORPUSCULAR HGB CONC 33.1 g/dL CAL (32.0-36.0); RED BLOOD COUNT 5.05 mill/uL (4.70-6.10); RED CELL DISTRI WIDTH 12.8 % (11.5-15.5)
[2021-02-14 07:33] LABS: ALKALINE PHOSPHATASE 69 u/l (38-126); ANION GAP 11 (6-22 (CALC)); BUN 17 mg/dL (9-20); BUN/CREATININE RATIO 23 (12-20 (CALC)); CARBON DIOXIDE 29 mmol/l (22-30); CHLORIDE 96 mmol/l (95-108); CREATININE 0.8 mg/dL (0.7-1.3); GFR > 60 ML/MIN (>=60 (CALC)); GFR FOR AFR.AMER. > 60 ML/MIN (>=60 (CALC)); POTASSIUM 4.5 mmol/l (3.5-5.1); SGOT/AST 19 u/l (17-59); SODIUM 132 mmol/l (137-146); TOTAL PROTEIN 6.2 g/dL (6.3-8.2)
[2021-02-14 07:45] LABS: BILIRUBIN, TOTAL 0.5 mg/dL (0.0-1.4)
[2021-02-14 09:03] VITALS: BP 109/60
--- NOTE | 2021-02-14 09:03 | NUR ---
PT RESTING IN SEMI FOWLERS POSITION,A&O X3;PT MOSTLY JORDANIAN, TRANSLATION PROVIDED BY MAGEN HUSAIN;VS OBTAINED AND ASSESSMENT COMPLETED;PT DENIES ANY CURRENT PAIN OR DISCOMFORTS,PAIN SCALE AND REPORTING EDUCATED;RESPIRATIONS EVEN AND UNLABORED ON O2 @ 2L VIA NC,CLEAR/DIMINISHED LUNG SOUNDS;ABDOMEN SOFT ON PALPATION AND ACTIVE IN ALL 4 QUADRANTS;STRONG PEDAL PULSES;SKIN INTACT;#20G TO LH FLUSHED AND PATENT,SITE APPEARS HEALTHY;PT DENIES ANY ADDITIONAL NEEDS AND IS ENCOURAGED TO CALL FOR ASSISTANCE IF NEEDED;FALL PRECAUTIONS IN PLACE WITH BED IN THE LOWEST POSITION AND CALL LIGHT IN REACH;WILL CONTINUE TO MONITOR
--- NOTE | 2021-02-14 12:25 | NUR ---
COVID NASAK SWAB OBTAINED FROM RIGHT NARE AT THIS TIME,PT TOLERATED WELL;SPECIMEN SENT TO LAB.
[2021-02-14 14:55] VITALS: BP 117/73
[2021-02-14] MEDS ORDERED: OXY1 (15:23)
[2021-02-14] MEDS ORDERED: ASPIRIN REGULA325 M1 PO (15:23)
--- NOTE | 2021-02-14 16:00 | NUR ---
PT RESTING IN SEMI FOWLERS POSITION;RESPIRATIONS EVEN AND UNLABORED ON O2 @ 2L VIA NC;PT DENIES ANY CURRENT PAIN OR NEEDS;IV SITE PATENT;ALL SAFETY PRECAUTIONS REMAIN IN PLACE WITH BED IN THE LOWEST POSITION AND CALL LIGHT IN REACH;WILL CONTINUE TO MONITOR
--- NOTE | 2021-02-14 18:25 | NUR ---
ALL DISCHARGE INSTRUCTIONS PROVIDED AT THIS TIME;TRANSLATION PROVIDED BY MAGEN HUSAIN;PT INSTRUCTED TO F/U WITH PCP IN THE NEXT WEEK,MONITOR O2 SATS AND REMAIN ABOVE 92%, HOME OXYGEN PROVIDED AND PT EDUCATED ON USE, CARD FOR LINECARE PROVIDED;RX SENT TO [facility] FOR ASPIRIN AND PT INSTRUCTED TO TAKE DAILY;PT VERBALIZES UNDERSTANDING;IV SITE REMOVED WITH CATHETER INTACT;PT DENIES ANY ADDITIONAL NEEDS;WHEELCHAIR TO BE PROVIDED FOR D/C HOME;SPOUSE TO TRANSPORT PT HOME;WILL CONTINUE TO MONITOR
== END 2021-02-14 20:00 | disposition home or self-care (01) | DRG 177 ==
LOC: ED 19:28 → ED-I 22:44 → ED 23:05 → ICU 23:06 → MS2 23:06 → ICU 02-06 09:00 → MS2 02-08 08:23 → ICU 02-08 08:23 → MS2 02-12 16:00 → ICU 02-13 14:04 → MS2 02-13 15:14
PROVIDERS: Emergency Medicine; ADMIT Hospitalist; ATTEND Internal Medicine
PROC: XW033E5 Introduction of Remdesivir Anti-infective into Peripheral Vein, Percutaneous Approach, New Technology Group 5 (ICD-10-PCS; principal; 2021-02-05)
DX: U07.1 COVID-19 (principal); J12.82 Pneumonia due to coronavirus disease 2019; J96.01 Acute respiratory failure with hypoxia
CPT/HCPCS: J1650